=== PATIENT | female | born 1990 | race Caucasian/White ===

== ENCOUNTER 2017-06-23 16:29 | Emergency (ER) | payer SELFPAY ==
[~2017-06-23] VITALS: Ht 157.5 cm; Wt 72.6 kg
[2017-06-23 17:13] VITALS: BP 92/56
--- NOTE | 2017-06-23 17:46 | NUR ---
PATIENT IS A 26 YO FEMALE BIB SELF FOR LEFT KNEE PAIN, AWAKE AND ALERT ABLE TO AMBULATE. TO BED 8 FOR [employer].
--- NOTE | 2017-06-23 17:49 | NUR ---
X-Ray at bedside.
[2017-06-23] MEDS ORDERED: KETOROLAC 60 MG/2 ML VIAL IM ONE (18:25)
[2017-06-23] MEDS ORDERED: predniSONE 20 MG TAB PO ONE (18:25)
--- NOTE | 2017-06-23 18:51 | NUR ---
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
[2017-06-23 18:56] VITALS: BP 92/56
--- NOTE | 2017-06-23 18:57 | NUR ---
Patient discharged with v/s stable. Written and verbal after care instructions given and explained. Patient alert, oriented and verbalized understanding of instructions. Ambulatory with steady gait. All questions addressed prior to discharge. ID band removed. Patient advised to follow up with PMD. Rx of MOTRIN, PREDNISONE, AND TRAMADOL given. Patient educated on indication of medication including possible reaction and side effects. Opportunity to ask questions provided and answered.
== END 2017-06-23 18:51 | disposition home or self-care (01) ==
LOC: MED 16:29
DX: M76.52 Patellar tendinitis, left knee (principal)
CPT/HCPCS: 29505; 73562; 96372; 99284; J1885; J7512

== ENCOUNTER 2017-08-10 11:42 | Emergency (ER) | payer SELFPAY ==
--- NOTE | 2017-08-10 12:12 | NUR ---
PATIENT CALLED FROM LOBBY AND WENT OUTSIDE TO LOOK FOR PATIENT OUTSIDE OF LOBBY; NO ANSWER.PATIENT LEFT WITHOUT BEING SEEN BY DR. DONALD. NO FURTHER CARE PROVIDED FOR PATIENT.
== END 2017-08-10 12:12 | disposition left against medical advice (07) ==
LOC: MED 11:42
DX: Z53.21 Procedure and treatment not carried out due to patient leaving prior to being seen by health care provider (principal)